=== PATIENT | female | born 1995 | race Caucasian/White ===

== ENCOUNTER 2023-02-02 17:39 | Emergency (ER) | payer BC, SELFPAY ==
--- NOTE | 2023-02-02 17:49 | ED.EYEPROB ---
HPI - Eye Problem General Chief complaint: Eye Problems Stated complaint: pink eye Time Seen by Provider: 02/02/23 17:51 Source: patient Mode of arrival: ambulatory Limitations: no limitations History of Present Illness HPI Narrative: 27 y/o female presented for c/o bilateral eye redness and irritation worsening for 2 days. Reports thick white/green drainage and gritty sensation. States it started on the left eye and spread to the right. Left eye crusted shut this morning with swelling. Using [place] eye drops for symptoms. Denies sick contacts. Denies injury or trauma, FB sensation, photophobia or visual changes. Does not wear contacts. chief complaint: eye pain Related Data Allergies Allergy/AdvReac Type Severity Reaction Status Date / Time Penicillins Allergy Other Verified 02/02/23 17:52 Sulfa (Sulfonamide Allergy Other Verified 02/02/23 17:52 Antibiotics) Review of Systems Review of Systems: CONSTITUTIONAL: Denies body aches, fever, chills EYES:Endorses left eye swelling, redness and drainage to both eyes; denies FB sensation, photophobia, visual changes ENT: Denies rhinorrhea, congestion, sore throat, or otalgia. CARDIOVASCULAR: Denies chest pain, palpitations RESPIRATORY: Denies cough or dyspnea. GASTROINTESTINAL: Denies abdominal pain, nausea, vomiting, or diarrhea. SKIN: Denies rash, itching, or wounds. MUSCULOSKELETAL: Denies back pain, joint pain, or myalgia. NEUROLOGIC: Denies headache, numbness, tingling, or weakness. All systems reviewed & are unremarkable except as noted in HPI and below PMFSH Past Medical History Medical History (Updated 02/02/23 @ 18:01 by Valorie Alvarez APRN) No pertinent past medical history Comments At time of signature, I have reviewed and agree with nursing past medical, surgical, social and family history unless otherwise noted. Please see nursing chart for further information. There is no relevant family history pertinent to the presenting complaint Exam Narrative: GENERAL: Well-appearing HEAD: Normocephalic, atraumatic. EYES: Bilateral conjunctival injection, mild upper eye lid swelling/redness; bilateral thick white/green drainage. PERRLA, EOMI. Lid eversion shows no FB. ENT: Mucous membranes pink and moist. No rhinorrhea. TMs normal bilaterally. Throat normal. Uvula midline. CHEST: Clear to auscultation. HEART: Regular rate and rhythm. ABDOMEN: Soft, nontender, nondistended SKIN: Warm, dry, no rash. Normal skin turgor. NEURO: No focal deficits. Alert and oriented x3 PSYCH: Normal affect. Course Course Emergency Course: Patient is aware of diagnosis, understands and agrees to treatment plan. Anticipatory guidance given. Patient agrees to follow-up as directed and is aware of reasons to seek care at the emergency department. Portions of this record may have been created with voice recognition software Level of Care: Express Care Visit MDM - Eye Problem MDM Narrative Medical decision making narrative: Discussed physical exam findings c/w bacterial conjunctivitis. Advised supportive measures and signs/symptoms to go to the ER. Pt is appropriate for outpt treatment and f/u. Differential Diagnosis Differential diagnosis: Likely corneal abrasion, conjunctivitis, acute iritis, periorbital cellulitis, subconjunctival hemorrhage and other Discharge Plan Discharge Clinical Impression: Acute bacterial conjunctivitis Patient Disposition: Home, Self-Care Condition: Stable Instructions: Antibiotic Form, Conjunctivitis (ED) Additional Instructions: Avoid touching or rubbing your eye. Use over the counter lubricating eye drops as needed for irritation Use a warm or cool washcloth on your eye for comfort Use eyedrops as directed - you are contagious for 24 hours after starting the antibiotic Practice good handwashing and hygiene to prevent spread of infection You may take Tylenol or ibuprofen for pain Follow-up with PCP or ophtha
[2023-02-02 17:54] VITALS: BP 137/96; PULSE 97; RESP 16; TEMP 36.4; O2SAT 100
== END 2023-02-02 18:10 | disposition home or self-care (01) ==
PROVIDERS: Emergency Provider Nurse Practitioner Family; PCP Nurse Practitioner Family
DX: H10.33 Unspecified acute conjunctivitis, bilateral (principal)
CPT/HCPCS: 99213; G0463